=== PATIENT | female | born 1980 | race Caucasian/White ===

== ENCOUNTER → 2023-12-08 09:34 | Outpatient (REF) | payer OTHER, SELFPAY | LOC: WDC 09:34 | PROVIDERS: ATTENDING PHYSICIAN Obstetrics & Gynecology | DX: Z12.31 Encounter for screening mammogram for malignant neoplasm of breast (principal) | CPT/HCPCS: 77063; 77067 ==

== ENCOUNTER → 2024-11-04 09:15 | Outpatient (REF) | payer OTHER, SELFPAY | LOC: WDC 09:15 | PROVIDERS: ATTENDING PHYSICIAN Family Medicine | DX: N63.10 Unspecified lump in the right breast, unspecified quadrant (principal); N63.12 Unspecified lump in the right breast, upper inner quadrant | CPT/HCPCS: 76642; 77062; 77066 ==

== ENCOUNTER → 2025-09-16 09:20 | Outpatient (REF) | payer OTHER, SELFPAY | LOC: WDC 09:20 | PROVIDERS: ATTENDING PHYSICIAN Obstetrics & Gynecology; FAMILY PHYSICIAN Family Medicine | DX: N63.22 Unspecified lump in the left breast, upper inner quadrant (principal); N63.0 Unspecified lump in unspecified breast | CPT/HCPCS: 76642; 77062; 77066 ==